=== PATIENT | female | born 1955 | race American Indian/Alaskan Native ===

== ENCOUNTER 2019-02-15 01:19 | Inpatient (IN) | payer MEDICARE ==
[2019-02-15] MEDS ORDERED: ASPIRIN PO ONE (01:27)
--- NOTE | 2019-02-15 01:58 | XRay Report ---
PROCEDURE: XR CHEST 1V AP TECHNIQUE: Chest radiograph single view. HISTORY: Chest Pain COMPARISONS: None . FINDINGS: Heart: Normal. Mediastinum/Vessels: Normal. Lungs/Pleural space: Normal. Bony thorax: No acute osseous abnormality. Life support devices: None. IMPRESSION: No acute cardiopulmonary abnormality. This document is electronically signed by Neo Dailey MD., February 15 2019 01:55:51 AM ET
[2019-02-15 02:13] LABS: Basophils % (Auto) 0.4 % (0.0-1.8); Eosinophils % (Auto) 0.8 % (0.0-4.3); Hemoglobin 12.7 gm/dl (10.1-14.3); Lymphocytes # (Auto) 1.3 K/mm3 (1.2-5.4); Lymphocytes % (Auto) 25.4 % (13.4-35.0); Mean Corpuscular HGB Conc 33 % (30-34); Mean Corpuscular Volume 91 fl (79-97); Monocytes # (Auto) 0.4 K/mm3 (0.0-0.8); Monocytes % (Auto) 7.6 % (0.0-7.3); Platelet Count 203 K/mm3 (140-440); Red Blood Count 4.18 M/mm3 (3.65-5.03)
[2019-02-15 02:33] LABS: BUN/Creatinine Ratio 11; Blood Urea Nitrogen 11 mg/dL (7-17); Calcium 9.8 mg/dL (8.4-10.2); Hemolysis Index 4
[2019-02-15] MEDS ORDERED: NITROSTAT SL ONE (02:59)
[2019-02-15] MEDS: NITROSTAT SL PRN ×2 (03:02→12:32)
[2019-02-15] MEDS ORDERED: MORPHINE IV ONE (03:29)
[2019-02-15] MEDS ORDERED: NACL 0.9% 500 ML 500 ML IV ONE (03:29)
--- NOTE | 2019-02-15 03:30 | Emergency Department Report ---
<CALVIN PERES - Last Filed: 02/15/19 05:38> ED Chest Pain HPI - General Chief Complaint: Chest Pain Stated Complaint: CP Time Seen by Provider: 02/15/19 03:22 Source: patient, EMS (ems notes not available at time of chart dictation), RN notes reviewed, old records reviewed Mode of arrival: Stretcher Limitations: No Limitations - History of Present Illness Initial Comments: Past medical history heart disease, coronary artery disease, stents 2, reports not taking aspirin or Plavix, history of breast cancer, chemotherapy, radiation This is a 63-year-old female. She reports that her cancer specialist and current wood gluer are with a local cancer treatment center. She cannot remember the name of her wood gluer. She believes that her oncologist is Dr. Graf She presents to the emergency room with complaint of nontraumatic central chest pain. The chest pain isn't really present for the past 4 hours prior to arrival. The chest pain is aching, does not have exacerbating factors that she is aware of, is associated with nausea, and decreases with rest and with nitroglycerin. It may moved to the back. She is not certain. Patient reports last cardiac stent placed in 2007. No recent cardiac risk stratification that she is aware. Makes a point of headache or neck pain, abdominal pain, leg pain. Nonspecific respiratory difficulty, no cough. MD Complaint: chest pain -: Gradual Onset: during rest Pain Location: substernal, left chest Pain Radiation: back Severity scale (0 -10): 3 Quality: aching Consistency: intermittent Improves With: nitroglycerin, medication-other Treatments Prior to Arrival: none Aspirin use within the Past 7 Days: (0) No - Related Data Allergies Allergy/AdvReac Type Severity Reaction Status Date / Time iodine AdvReac Anaphylaxis Verified 02/15/19 01:26 Heart Score - HEART Score History: Moderately suspicious EKG: Non-specific Age: 45-65 Risk factors: 1-2 risk factors Troponin: < normal limit HEART Score: 4 - Critical Actions Critical Actions: 0-3 pts:0.9-1.7%risk of adverse cardiac event.Candidate for discharge ED Review of Systems Constitutional: malaise. denies: fever Eyes: denies: vision change ENT: denies: epistaxis Respiratory: denies: cough Cardiovascular: chest pain Gastrointestinal: nausea. denies: vomiting Genitourinary: denies: dysuria Musculoskeletal: denies: back pain Neurological: weakness Psychiatric: anxiety ED Past Medical Hx - Past Medical History Previous Medical History?: Yes Hx Hypertension: Yes Hx of Cancer: Yes (Breast CA (Right)) - Surgical History Past Surgical History?: Yes Hx Coronary Stent: Yes (x2 placed 2007) ED Physical Exam - General Limitations: No Limitations General appearance: alert, anxious - Head Head exam: Present: atraumatic, normocephalic - Eye Eye exam: Present: normal appearance, EOMI - ENT ENT exam: Present: normal exam, normal orophraynx, mucous membranes moist, normal external ear exam - Neck Neck exam: Present: normal inspection, full ROM. Absent: tenderness, meningismus - Respiratory Respiratory exam: Present: normal lung sounds bilaterally, chest wall tenderness. Absent: respiratory distress - Cardiovascular Cardiovascular Exam: Present: regular rate, normal rhythm, normal heart sounds. Absent: bradycardia, tachycardia, irregular rhythm, systolic murmur, diastolic murmur, rubs, gallop - GI/Abdominal GI/Abdominal exam: Present: soft. Absent: distended, tenderness, guarding, rebound, rigid, pulsatile mass - Extremities Exam Extremities exam: Present: normal inspection, full ROM, other (2+ pulses noted in the bilateral upper, lower extremities. Compartments soft. No long bony te nderness. The pelvis is stable.). Absent: pedal edema, joint swelling, calf tenderness - Back Exam Back exam: Present: normal inspection, full ROM. Absent: tenderness, CVA tenderness (R), paraspinal tenderness, vertebral tenderness - Neurological Exam Neurological exam: Present: alert, other (Extraocular movements intact. Tongue midline. No facial droop. Facial sensation intact to light touch in the V1, V2, V3 distribution bilaterally. 5 and 5 strength in 4 extremities.. Sensation is intact to light touch in 4 extremities.). Absent: motor sensory deficit - Psychiatric Psychiatric exam: Present: normal affect, normal mood - Skin Skin exam: Present: warm, dry, intact, normal color. Absent: rash ED Course - Reevaluation(s) Reevaluation #1: 02/15/19 05:43 Differential diagnosis, including not limited to: GERD, gastritis, hiatal hernia, pneumonia, acute coronary syndrome, pulmonary embolus Assessment and plan: 63-year-old female, known history of coronary artery disease, reportedly noncompliant with antiplatelet therapy, also active breast cancer patient, with concerning chest pain. The patient is afebrile with reassuring vital signs. Hemodynamically has been stable. Her pain has been treated aggressively. She endorses tongue swelling when she is exposed to IV contrast dye. We will therefore obtain a nuclear medicine study, to risk stratify the patient for pulmonary embolus. Assuming no PE is suggested, plan is to admit the patient to the medical service for cardiac risk stratification. Discussed this with the patient, who verbalized understanding, and is amenable to this plan of care. [facility], Dr. Brodie Pedraza, to follow up on nuclear medicine study, and contact the inpatient hospitalist team to arrange admission. CLEMENTE score - Clemente Score Age > 65: (0) No Aspirin use within the Past 7 Days: (0) No 3 or more CAD Risk Factors: (0) No 2 or more Angina events in past 24 hrs: (1) Yes Known CAD with more than 50% Stenosis: (0) No Elevated Cardiac Markers: (0) No ST Deviation Greater than 0.5mm: (0) No CLEMENTE Score: 1 ED Medical Decision Making - Lab Data Result diagrams: 02/15/19 02:00 02/15/19 02:00 Vital Signs 02/15/19 02/15/19 02/15/19 01:27 01:32 03:02 Temperature 97.8 F Pulse Rate 69 67 67 Respiratory 15 Rate Blood Pressure 169/115 Blood Pressure 170/99 [Left] O2 Sat by Pulse 98 Oximetry 02/15/19 04:57 Temperature Pulse Rate 70 Respiratory 15 Rate Blood Pressure Blood Pressure 134/82 [Left] O2 Sat by Pulse 95 Oximetry Lab Results 02/15/19 02/15/19 02/15/19 Range/Units 02:00 02:00 03:38 WBC 5.2 (4.5-11.0) K/mm3 RBC 4.18 (3.65-5.03) M/mm3 Hgb 12.7 (10.1-14.3) gm/dl Hct 38.0 (30.3-42.9) % MCV 91 (79-97) fl MCH 30 (28-32) pg MCHC 33 (30-34) % RDW 15.0 (13.2-15.2) % Plt Count 203 (140-440) K/mm3 Lymph % (Auto) 25.4 (13.4-35.0) % [place] % (Auto) 7.6 H (0.0-7.3) % Eos % (Auto) 0.8 (0.0-4.3) % Baso % (Auto) 0.4 (0.0-1.8) % Lymph # 1.3 (1.2-5.4) K/mm3 [place] # 0.4 (0.0-0.8) K/mm3 Eos # 0.0 (0.0-0.4) K/mm3 Baso # 0.0 (0.0-0.1) K/mm3 Seg Neutrophils % 65.8 (40.0-70.0) % Seg Neutrophils # 3.4 (1.8-7.7) K/mm3 PT (12.2-14.9) Sec. INR (0.87-1.13) D-Dimer (0-234) ng/mlDDU Sodium 139 (137-145) mmol/L Potassium 3.4 L (3.6-5.0) mmol/L Chloride 100.0 (98-107) mmol/L Carbon Dioxide 24 (22-30) mmol/L Anion Gap 18 mmol/L BUN 11 (7-17) mg/dL Creatinine 1.0 (0.7-1.2) mg/dL Estimated GFR > 60 ml/min BUN/Creatinine Ratio 11 % Glucose 143 H (65-100) mg/dL Calcium 9.8 (8.4-10.2) mg/dL Magnesium (1.7-2.3) mg/dL Total Creatine Kinase (30-135) units/L Troponin T 0.018 0.024 (0.00-0.029) ng/mL 02/15/19 02/15/19 Range/Units 03:38 03:38 WBC (4.5-11.0) K/mm3 RBC (3.65-5.03) M/mm3 Hgb (10.1-14.3) gm/dl Hct (30.3-42.9) % MCV (79-97) fl MCH (28-32) pg MCHC (30-34) % RDW (13.2-15.2) % Plt Count (140-440) K/mm3 Lymph % (Auto) (13.4-35.0) % [place] % (Auto) (0.0-7.3) % Eos % (Auto) (0.0-4.3) % Baso % (Auto) (0.0-1.8) % Lymph # (1.2-5.4) K/mm3 [place] # (0.0-0.8) K/mm3 Eos # (0.0-0.4) K/mm3 Baso # (0.0-0.1) K/mm3 Seg Neutrophils % (40.0-70.0) % Seg Neutrophils # (1.8-7.7) K/mm3 PT 13.6 (12.2-14.9) Sec. INR 0.98 (0.87-1.13) D-Dimer 239.15 H (0-234) ng/mlDDU Sodium (137-145) mmol/L Potassium (3.6-5.0) mmol/L Chloride (98-107) mmol/L Carbon Dioxide (22-30) mmol/L Anion Gap mmol/L BUN (7-17) mg/dL Creatinine (0.7-1.2) mg/dL Estimated GFR ml/min BUN/Creatinine Ratio % Glucose (65-100) mg/dL Calcium (8.4-10.2) mg/dL Magnesium 1.80 (1.7-2.3) mg/dL Total Creatine Kinase 61 (30-135) units/L Troponin T (0.00-0.029) ng/mL - EKG Data -: EKG Interpreted by Ga EKG shows normal: sinus rhythm, axis Rate: normal - EKG Data When compared to previous EKG there are: no significant change 02/15/19 05:42 EKG shows a normal sinus, 69 bpm, normal axis, QTC prolonged, poor R progression, left ventricular hypertrophy, this is an abnormal EKG, this EKG is not consistent with ST elevation myocardial infarction. - Radiology Data Radiology results: pending, report reviewed, image reviewed X-ray of the chest is negative for acute disease. Nuclear medicine studies pending. ED Disposition Clinical Impression: Chest pain Disposition: OP ADMIT IP TO THIS HOSP Is pt being admited?: Yes Does the pt Need Aspirin: Yes Condition: Fair Instructions: Chest Pain (ED) Referrals: PRIMARY CARE, [Primary Care Provider] - 3-5 Days <SAKSHI PEDRAZA - Last Filed: 02/15/19 07:38> ED Review of Systems ROS: Stated complaint: CP Other details as noted in HPI ED Course Vital Signs 02/15/19 02/15/19 02/15/19 01:27 01:32 03:02 Temperature 97.8 F Pulse Rate 69 67 67 Respiratory 15 Rate Blood Pressure 169/115 Blood Pressure 170/99 [Left] O2 Sat by Pulse 98 Oximetry 02/15/19 02/15/19 02/15/19 04:57 05:52 05:53 Temperature Pulse Rate 70 77 Respiratory 15 18 18 Rate Blood Pressure Blood Pressure 134/82 128/66 [Left] O2 Sat by Pulse 95 93 93 Oximetry 02/15/19 07:02 Temperature Pulse Rate 71 Respiratory 17 Rate Blood Pressure Blood Pressure 157/85 [Left] O2 Sat by Pulse Oximetry ED Medical Decision Making - Lab Data Result diagrams: 02/15/19 02:00 02/15/19 02:00 - Radiology Data Radiology results: report reviewed (VQ scan), image reviewed (VQ scan) [place] [address] Nuclear Medicine Report Signed Patient: JOCELYNE RAVI MR#: [id number] : 1955 Acct:[id number] Age/Sex: 63 / F ADM Date: 02/15/19 Loc: ED Attending Dr: Ordering Physician: CALVIN PERES MD Date of Service: 02/15/19 Procedure(s): NM lung scan perf/vent Accession Number(s): [id number] cc: CALVIN PERES MD PROCEDURE: NM PULMONARY QUANTITATIVE DIFFERENTIAL PERFUSION AND VENTILATION IMAGING. TECHNIQUE: 5 mCi Tc-99m MAA was injected IV for quantitative differential pulmonary perfusion imaging in multiple projections. 12 mCi xenon-133 was inhaled for quantitative differential pulmona ry ventilation imaging in multiple projections. Injection site: RIGHT antecubital fossa. CPT 22626 REGULATORY GUIDELINES: The patient was released based upon guidelines established in [place] State Regulations for Protection Against Radiation, Chapter 1199-11-25-35, Release of Individuals Containing Radioactive Drugs or Implants. HISTORY: Chest pain COMPARISONS: None . FINDINGS: Perfusion: No defects . Ventilation: No defects . IMPRESSION: Normal Examination . There is no evidence of pulmonary embolism. This document is electronically signed by Haider Mauro MD., February 15 2019 07:32:16 AM ET Transcribed By: CO Dictated By: HAIDER MAURO MD Electronically Authenticated By: HAIDER MAURO MD Signed Date/Time: 02/15/19 0734 DD/ 2 TD/TT: 02/15/1912 Critical care attestation.: If time is entered above; I have spent that time in minutes in the direct care of this critically ill patient, excluding procedure time. ED Disposition Is pt being admited?: Yes Does the pt Need Aspirin: Yes Time of Disposition: 07:38 (hospitalist paged)
[2019-02-15 04:02] LABS: INR 0.98 (0.87-1.13)
[2019-02-15] MEDS ORDERED: K-DUR PO ONE ×2 (05:41→21:12)
[2019-02-15] MEDS ORDERED: PEPCID IV ONE (05:45)
--- NOTE | 2019-02-15 07:34 | Nuclear Medicine Report ---
PROCEDURE: NM PULMONARY QUANTITATIVE DIFFERENTIAL PERFUSION AND VENTILATION IMAGING. TECHNIQUE: 5 mCi Tc-99m MAA was injected IV for quantitative differential pulmonary perfusion imagin g in multiple projections. 12 mCi xenon-133 was inhaled for quantitative differential pulmonary venti lation imaging in multiple projections. Injection site: RIGHT antecubital fossa. CPT 72168 REGULATORY GUIDELINES: The patient was released based upon guidelines established in [facility] Regulat ions for Protection Against Radiation, Chapter 1199-11-25-35, Release of Individuals Containing Radio active Drugs or Implants. HISTORY: Chest pain COMPARISONS: None . FINDINGS: Perfusion: No defects . Ventilation: No defects . IMPRESSION: Normal Examination . There is no evidence of pulmonary embolism. This document is electronically signed by Haider Smith MD., February 15 2019 07:32:16 AM ET
[2019-02-15 07:55] LABS: Chol/HDL Ratio 2.58 %
[2019-02-15] MEDS ORDERED: ZOFRAN ONE (14:16)
[2019-02-15] MEDS ORDERED: ZOFRAN IV ONE (14:33)
--- NOTE | 2019-02-15 14:48 | History and Physical Report ---
History of Present Illness Chief complaint: My chest is hurting History of present illness: 63 YO Female with HTN, CAD S/P Stent Placement, BrCa S/P Chemo and Radiation Therapy presents to ED for evaluation. Pt states that she has experienced pain in her chest over the past 1 day with acutely worsening symptoms over the past 2-3 hours. Pt states that her pain is 3-6/10, Substernal, radiates to the left chest, aching and crushing in nature, not worsened with exertion, relieved with rest, associated with nausea and diaphoresis. Pt acknowledges decreased exercise tolerance. Pt seen and evaluated in ED and found to have symptoms consistent with NSTEMI as well as Diastolic CHF. Pt admitted to [facility]. Cardiology consulted in ED. Pt initiated on therapeutic lovenox. No prior admissions for review. No medication listed at time of admission for reconciliation. Past History Past Medical History: CAD, cancer, hypertension Past Surgical History: Other (Cardiac stent placement. ) Social history: single. denies: smoking, alcohol abuse, prescription drug abuse Family history: hypertension Medications and Allergies Allergies Allergy/AdvReac Type Severity Reaction Status Date / Time iodine AdvReac Anaphylaxis Verified 02/15/19 01:26 Home Medications Medication Instructions Recorded Confirmed Last Taken Type No Known Home Medications [No 02/15/19 02/15/19 Unknown History Reported Home Medications] Active Meds: Active Medications Nitroglycerin (Nitrostat) 0.4 mg SL .Q5MIN PRN PRN Reason: Chest Pain Last Admin: 02/15/19 12:32 Dose: 0.4 mg Documented by: Review of Systems Constitutional: no weight loss, no weight gain, no fever, no chills Ears, nose, mouth and throat: no ear pain, no ear discharge, no tinnitis, no decreased hearing, no nose pain Breasts: no change in shape, no swelling, no mass Cardiovascular: chest pain Gastrointestinal: no abdominal pain, no nausea, no vomiting, no diarrhea Genitourinary Female: no pelvic pain, no flank pain, no menorrhagia, no dysuria, no urinary frequency Rectal: no pain, no incontinence, no bleeding Musculoskeletal: no neck stiffness, no neck pain, no shooting arm pain, no arm numbness/tingling, no low back pain Integumentary: no rash, no pruritis, no redness, no sores, no wounds Neurological: no transient paralysis, no paralysis, no weakness, no parathesias, no numbness, no tingling, no seizures Psychiatric: no anxiety, no memory loss, no change in sleep habits, no sleep disturbances, no insomnia, no hypersomnia Endocrine: no cold intolerance, no heat intolerance, no polyphagia, no excessive thirst, no polydipsia, no polyuria Hematologic/Lymphatic: no easy bruising, no easy bleeding Allergic/Immunologic: no urticaria, no allergic rhinitis, no wheezing Exam - Constitutional Vitals: Temp Pulse Resp BP Pulse Ox 97.8 F 66 16 152/74 98 02/15/19 01:32 02/15/19 14:37 02/15/19 14:37 02/15/19 14:37 02/15/19 14:37 General appearance: Present: mild distress - EENT Eyes: Present: PERRL ENT: hearing intact, clear oral mucosa - Neck Neck: Present: supple, normal ROM - Respiratory Respiratory effort: normal Respiratory: bilateral: CTA - Cardiovascular Heart Sounds: Present: S1 & S2. Absent: rub, click - Extremities Extremities: pulses symmetrical, No edema Peripheral Pulses: within normal limits - Abdominal General gastrointestinal: Present: soft, non-tender, non-distended, normal bowel sounds Female genitourinary: Present: normal - Integumentary Integumentary: Present: clear, warm, dry - Musculoskeletal Musculoskeletal: gait normal, strength equal bilaterally - Psychiatric Psychiatric: appropriate mood/affect, intact judgment & insight - Neurologic Neurologic: CNII-XII intact, moves all extremities Results - Labs CBC & Chem 7: 02/15/19 02:00 02/15/19 02:00 Labs: Abnormal lab results 02/15/19 02/15/19 02/15/19 Range/Units 02:00 02:00 03:38 [place] % (Auto) 7.6 H (0.0-7.3) % D-Dimer 239.15 H (0-234) ng/mlDDU Potassium 3.4 L (3.6-5.0) mmol/L Glucose 143 H (65-100) mg/dL Troponin T (0.00-0.029) ng/mL 02/15/19 Range/Units 07:11 [place]ell % (Auto) (0.0-7.3) % D-Dimer (0-234) ng/mlDDU Potassium (3.6-5.0) mmol/L Glucose (65-100) mg/dL Troponin T 0.052 H D (0.00-0.029) ng/mL Assessment and Plan - Patient Problems (1) NSTEMI (non-ST elevated myocardial infarction) Current Visit: Yes Status: Acute Plan to address problem: Admit to IMCU, Serial Cardiac enzymes, Echo, stress test, Therapeutic anticoagulation, morphine, supplemental oxygen, nitro, aspirin, chest x ray. (2) HTN (hypertension) Current Visit: Yes Status: Acute Qualifiers: Hypertension type: essential hypertension Qualified Code(s): I10 - Essential (primary) hypertension Plan to address problem: Monitor BP q shift, continue current therapy. (3) Breast cancer Current Visit: Yes Status: Acute Qualifiers: Laterality: unspecified laterality Plan to address problem: Outpatient oncology F/U. Pt is S/P Chemo and Radiation therapy. (4) CAD (coronary artery disease) Current Visit: Yes Status: Acute Qualifiers: Associated angina: with stable angina Plan to address problem: Admit to IMCU, Chest pain protocol, lipid panel, statin therapy, risk factor reduction. (5) DVT prophylaxis Current Visit: Yes Status: Acute Plan to address problem: SCD to BLE while in bed, Therapeutic lovenox
[2019-02-15] MEDS ORDERED: SODIUM CHLORIDE FLUSH SYRINGE 10 ML IV PRN (14:50)
[2019-02-15] MEDS ORDERED: TYLENOL PO PRN (14:50)
[2019-02-15] MEDS ORDERED: PROVENTIL IH PRN (14:50)
[2019-02-15] MEDS ORDERED: BABY ASPIRIN PO STA (14:50)
[2019-02-15] MEDS ORDERED: LOVENOX SUB-Q SCH ×3 (14:55→22:00)
[2019-02-15] MEDS: MORPHINE IV PRN (17:57)
[2019-02-15] MEDS: ZOFRAN IV PRN (17:57)
[2019-02-15 18:10] LABS: Free T4 (Free Thyroxine) 1.02 ng/dL (0.76-1.46)
[2019-02-15] MEDS: SODIUM CHLORIDE FLUSH SYRINGE 10 ML IV SCH (22:08)
[2019-02-15] MEDS: PEPCID PO SCH (22:08)
[2019-02-16] MEDS ORDERED: APRESOLINE IV PRN (01:11)
[2019-02-16] MEDS: ZOFRAN IV PRN (02:00)
[2019-02-16] MEDS: SODIUM CHLORIDE FLUSH SYRINGE 10 ML IV PRN ×2 (02:06→05:22)
[2019-02-16] MEDS: MORPHINE IV PRN (05:18)
--- NOTE | 2019-02-16 09:06 | Consultation ---
History of Present Illness Consult date: 02/16/19 Consult reason: chest pain History of present illness: 63 year old female presenting with chest pain, abnormal troponin consistent with NSTEMI History of CAD s/p PCI in 2007 Patient states that she had a normal stress test 3 months ago Patient reports that she is not taking antiplatelet therapy at home for unclear reasons Patient has a history of breast cancer s/p surgery, chemo and radiation therapy Past History Past Medical History: CAD, cancer, hypertension Past Surgical History: Other (Cardiac stent placement. ) Social history: single. denies: smoking, alcohol abuse, prescription drug abuse Family history: hypertension Medications and Allergies Allergies Allergy/AdvReac Type Severity Reaction Status Date / Time iodine AdvReac Anaphylaxis Verified 02/15/19 01:26 Home Medications Medication Instructions Recorded Confirmed Last Taken Type No Known Home Medications [No 02/15/19 02/15/19 Unknown History Reported Home Medications] Active Meds: Active Medications Acetaminophen (Tylenol) 650 mg PO Q4H PRN PRN Reason: Pain MILD(1-3)/Fever >100.5/MESSER Albuterol (Proventil) 2.5 mg IH Q4HRT PRN PRN Reason: Shortness Of Breath Famotidine (Pepcid) 20 mg PO BID [facility] Last Admin: 02/15/19 22:08 Dose: 20 mg Documented by: Hydralazine HCl (Apresoline) 10 mg IV Q4HR PRN PRN Reason: SBP greater than 160 Last Admin: 02/16/19 01:53 Dose: 10 mg Documented by: Morphine Sulfate (Morphine) 2 mg IV Q4H PRN PRN Reason: Pain, Moderate (4-6) Last Admin: 02/16/19 05:18 Dose: 2 mg Documented by: Nitroglycerin (Nitrostat) 0.4 mg SL .Q5MIN PRN PRN Reason: Chest Pain Last Admin: 02/15/19 12:32 Dose: 0.4 mg Documented by: Ondansetron HCl (Zofran) 4 mg IV Q8H PRN PRN Reason: Nausea And Vomiting Last Admin: 02/16/19 02:00 Dose: 4 mg Documented by: Sodium Chloride (Sodium Chloride Flush Syringe 10 Ml) 10 ml IV BID [facility] Last Admin: 02/15/19 22:08 Dose: 10 ml Documented by: Sodium Chloride (Sodium Chloride Flush Syringe 10 Ml) 10 ml IV PRN PRN PRN Reason: LINE FLUSH Last Admin: 02/16/19 05:22 Dose: 10 ml Documented by: Review of Systems All systems: negative Physical Examination Vital Signs Pulse 69 02/15/19 01:27 General appearance: no acute distress HEENT: Positive: PERRL Neck: Positive: neck supple Cardiac: Positive: Reg Rate and Rhythm Lungs: Positive: Normal Exam Abdomen: Positive: Soft Extremities: Present: normal Results 02/15/19 02:00 02/15/19 02:00 - EKG Interpretation EKG: sinus rhythm EKG interpretations - Telemetry EKG Rhythm: Sinus Rhythm Assessment and Plan NSTEMI Negative VQ scan CAD s/p PCI in 2007 Breast cancer s/p surgery, chemo and radiation Rx Recommendations: Cancel stress test Proceed with LHC (consent in chart) Pretreat with solumedrol and benadryl (history of iodine allergy)
[2019-02-16] MEDS: LOPRESSOR PO SCH ×2 (09:29→21:40)
[2019-02-16] MEDS: PEPCID PO SCH ×2 (09:30→21:40)
[2019-02-16] MEDS: HALFPRIN EC PO SCH (09:30)
[2019-02-16] MEDS: SODIUM CHLORIDE FLUSH SYRINGE 10 ML IV SCH (09:31)
[2019-02-16] MEDS ORDERED: BENADRYL IV ONE (10:00)
[2019-02-16] MEDS ORDERED: SOLU-Medrol IV ONE (10:00)
[2019-02-16] MEDS ORDERED: NACL 0.9% 500 ML 500 ML IV SCH (10:00)
[2019-02-16] MEDS ORDERED: VERSED ONE (10:47)
[2019-02-16] MEDS ORDERED: HEPARIN/NS 5000 UNIT/500ML(CATH LAB) 1,000 ML IR ONE (10:47)
[2019-02-16] MEDS ORDERED: HEPARIN 10,000 UNITS/10 ML ONE (10:47)
[2019-02-16] MEDS ORDERED: NITROGLYCERIN SYRINGE 0 ML ONE (10:48)
[2019-02-16] MEDS ORDERED: XYLOCAINE 2% INFILTRATI ONE (10:48)
[2019-02-16] MEDS ORDERED: CALAN ONE (10:48)
[2019-02-16] MEDS ORDERED: SUBLIMAZE ONE (10:48)
[2019-02-16] MEDS ORDERED: NACL 0.9% 500 ML 500 ML ONE (10:49)
--- NOTE | 2019-02-16 13:30 | Cardiac Catherization Report ---
LEFT HEART CATHETERIZATION INDICATION FOR PROCEDURE: Non-ST elevation myocardial infarction. ORDERING PHYSICIAN: Jatin Montes MD PROCEDURES PERFORMED: 1. Selective left and right coronary angiography. 2. Left ventriculography. DESCRIPTION OF PROCEDURE: After obtaining the consent, the patient was draped using sterile technique, 2% lidocaine was injected into the right groin. A 5-[place] vascular sheath was inserted using micropuncture needle. A 5-[place] JL4 catheter was used to selectively engage the left coronary artery. A 5-[place] JR4 catheter was used to selectively engage the right coronary artery. A 5-[place] JR4 catheter was used to hand inject the left ventriculogram. No complications occurred during the procedure. Hemostasis was achieved at the end of the procedure using a 5-[place] Mynx closure device. ESTIMATED BLOOD LOSS: Minimal. SPECIMEN REMOVED: None. Total sedation administered was monitored, 1 mg of IV Versed and 25 mcg of IV fentanyl. Physician and patient [id number] sedation start time: 11:22 a.m. Physician and patient [id number] sedation stop time: 11:41 a.m. Total sedation time was 19 minutes. FINDINGS: HEMODYNAMICS: Aortic pressure 156/79, LV systolic pressure 153 mmHg, and LV end diastolic pressure 26 mmHg. CARDIAC STRUCTURES: The left ventricle is normal in size. The left ventricular ejection fraction is estimated at 45%-50%. There is basal anterior and basal inferior wall hypokinesis. CORONARY ANATOMY: 1. This is a left dominant circulation. 2. The left main is a short vessel. 3. The left anterior descending artery has evidence of a 30% ostial disease followed by scattered 30% lesions noted throughout the proximal segment of the left anterior descending artery. There is a patent stent in the mid LAD. There is evidence of an occluded stent at the ostium and proximal segment of the second diagonal artery. 4. The left circumflex artery is a large, dominant vessel with no evidence of significant obstructive coronary artery disease. 5. The right coronary artery is a small nondominant vessel that is severely diffusely diseased. IMPRESSION: 1. Patent mid LAD stent with an occluded bifurcation, second diagonal artery stent. Otherwise, nonobstructive coronary artery disease noted throughout this left dominant coronary circulation. The right coronary artery is a small nondominant severely diffusely diseased vessel. 2. The left ventricular ejection fraction estimated between 45% and 50% with basal anterior and basal inferior hypokinesis. RECOMMENDATIONS: The patient will be recommended for medical therapy. IV heparin will be continued for 48 hours and the patient will be started on dual antiplatelet therapy. JOB# [id number] RENZO/GEORGE
--- NOTE | 2019-02-16 16:43 | Progress Note ---
Assessment and Plan Assessment and plan: 63-year-old long history of hypertension, CAD status post stents in the past, breast cancer status post chemoradiation who presented with chest pain 1 day. Past medical history; hypertension, breast cancer, CAD VQ scan neg A/P NSTEMI: sp cath, patent LAD stent noted, occluded diag stent, HTN; optimize meds Breast Ca; cont outpatient fup Hypokalemia; repleted Tentative dc home tomorrow History Interval history: Review of systems Constitutional: No fevers, no malaise, no joint pains CVS: No chest pain, no orthopnea, no dyspnea on exertion, no pedal edema GI: No abdominal pain, no diarrhea, no vomiting, no constipation Respiratory: no wheezing, no coughing Hospitalist Physical - Physical exam Narrative exam: General.: Appears well, no distress, nontoxic HEENT: Moist mucous membranes, extraocular muscles intact, no lymphadenopathy Neck: supple Cardiac: S1-S2 heard Lungs: clear to auscultation bilaterally Abdomen: soft , nontender, nondistended, bowel sounds positive Extremities: no edema clubbing or cyanosis Skin: no rash or lesions Neurologic: no gross focal deficits Psych: calm, and cooperative - Constitutional Vitals: Temp Pulse Resp BP Pulse Ox 97.9 F 66 18 137/73 97 02/16/19 16:00 02/16/19 10:51 02/16/19 10:51 02/16/19 10:51 02/16/19 10:51 General appearance: Present: no acute distress Results - Labs CBC & Chem 7: 02/15/19 02:00 02/15/19 02:00 Labs: Laboratory Last Values WBC 5.2 K/mm3 (4.5-11.0) 02/15/19 02:00 RBC 4.18 M/mm3 (3.65-5.03) 02/15/19 02:00 Hgb 12.7 gm/dl (10.1-14.3) 02/15/19 02:00 Hct 38.0 % (30.3-42.9) 02/15/19 02:00 MCV 91 fl (79-97) 02/15/19 02:00 MCH 30 pg (28-32) 02/15/19 02:00 MCHC 33 % (30-34) 02/15/19 02:00 RDW 15.0 % (13.2-15.2) 02/15/19 02:00 Plt Count 203 K/mm3 (140-440) 02/15/19 02:00 Lymph % (Auto) 25.4 % (13.4-35.0) 02/15/19 02:00 [place] % (Auto) 7.6 % (0.0-7.3) H 02/15/19 02:00 Eos % (Auto) 0.8 % (0.0-4.3) 02/15/19 02:00 Baso % (Auto) 0.4 % (0.0-1.8) 02/15/19 02:00 Lymph # 1.3 K/mm3 (1.2-5.4) 02/15/19 02:00 [place] # 0.4 K/mm3 (0.0-0.8) 02/15/19 02:00 Eos # 0.0 K/mm3 (0.0-0.4) 02/15/19 02:00 Baso # 0.0 K/mm3 (0.0-0.1) 02/15/19 02:00 Seg Neutrophils % 65.8 % (40.0-70.0) 02/15/19 02:00 Seg Neutrophils # 3.4 K/mm3 (1.8-7.7) 02/15/19 02:00 PT 13.6 Sec. (12.2-14.9) 02/15/19 03:38 INR 0.98 (0.87-1.13) 02/15/19 03:38 D-Dimer 239.15 ng/mlDDU (0-234) H 02/15/19 03:38 Sodium 139 mmol/L (137-145) 02/15/19 02:00 Potassium 3.4 mmol/L (3.6-5.0) L 02/15/19 02:00 Chloride 100.0 mmol/L (98-107) 02/15/19 02:00 Carbon Dioxide 24 mmol/L (22-30) 02/15/19 02:00 Anion Gap 18 mmol/L 02/15/19 02:00 BUN 11 mg/dL (7-17) 02/15/19 02:00 Creatinine 1.0 mg/dL (0.7-1.2) 02/15/19 02:00 Estimated GFR > 60 ml/min 02/15/19 02:00 BUN/Creatinine Ratio 11 % 02/15/19 02:00 Glucose 143 mg/dL (65-100) H 02/15/19 02:00 Calcium 9.8 mg/dL (8.4-10.2) 02/15/19 02:00 Magnesium 1.80 mg/dL (1.7-2.3) 02/15/19 03:38 Total Creatine Kinase 61 units/L (30-135) 02/15/19 03:38 Troponin T 0.117 ng/mL (0.00-0.029) H* D 02/15/19 20:20 NT-Pro-B Natriuret Pep 1254 pg/mL (0-900) H 02/15/19 15:15 Triglycerides 56 mg/dL (2-149) 02/15/19 07:11 Cholesterol 150 mg/dL (50-199) 02/15/19 07:11 LDL Cholesterol Direct 84 mg/dL (50-130) 02/15/19 07:11 HDL Cholesterol 58 mg/dL (40-59) 02/15/19 07:11 Cholesterol/HDL Ratio 2.58 % 02/15/19 07:11 TSH 1.260 mlU/mL (0.270-4.200) 02/15/19 17:28 Free T4 1.02 ng/dL (0.76-1.46) 02/15/19 17:28 Active Medications - Current Medications Current Medications: Generic Name Dose Route Start Last Admin Trade Name Freq PRN Reason Stop Dose Admin Acetaminophen 650 mg 02/15/19 14:50 Tylenol PO Q4H PRN Pain MILD(1-3)/Fever >100.5/MESSER Albuterol 2.5 mg 02/15/19 14:50 Proventil IH Q4HRT PRN Shortness Of Breath Aspirin 81 mg 02/16/19 10:00 02/16/19 09:30 Halfprin Ec PO 81 mg QDAY [facility] Administration Atorvastatin Calcium 40 mg 02/16/19 22:00 Lipitor PO QHS ANDREY Clopidogrel Bisulfate 75 mg 02/16/19 14:00 Plavix PO QDAY ANDREY Famotidine 20 mg 02/15/19 22:00 02/16/19 09:30 Pepcid PO 20 mg BID ANDREY Administration Hydralazine HCl 10 mg 02/16/19 01:11 02/16/19 01:53 Apresoline IV 10 mg Q4HR PRN Administration SBP greater than 160 Sodium Chloride 500 mls @ 50 mls/hr 02/16/19 10:00 02/16/19 11:20 Nacl 0.9% 500 Ml IV 02/16/19 19:59 100 mls DIRECT ANDREY Administration Heparin Sodium/Sodium Chloride 25,000 unit in 500 mls @ 20 mls/hr 02/16/19 16:00 Heparin/ 0.45% Nacl-25,000 Unit/500 Ml IV TITRATE ANDREY Protocol 1,000 UNITS/HR Isosorbide Mononitrate 30 mg 02/16/19 14:00 Imdur PO QDAY [facility] Metoprolol Tartrate 25 mg 02/16/19 10:00 02/16/19 09:29 Lopressor PO 25 mg BID ANDREY Administration Morphine Sulfate 2 mg 02/15/19 14:50 02/16/19 05:18 Morphine IV 2 mg Q4H PRN Administration Pain, Moderate (4-6) Nitroglycerin 0.4 mg 02/15/19 03:00 02/15/19 12:32 Nitrostat SL 0.4 mg .Q5MIN PRN Administration Chest Pain Ondansetron HCl 4 mg 02/15/19 14:50 02/16/19 02:00 Zofran IV 4 mg Q8H PRN Administration Nausea And Vomiting Sodium Chloride 10 ml 02/15/19 22:00 02/16/19 09:31 Sodium Chloride Flush Syringe 10 Ml IV 10 ml BID ANDREY Administration Sodium Chloride 10 ml 02/15/19 14:50 02/16/19 05:22 Sodium Chloride Flush Syringe 10 Ml IV 10 ml PRN PRN Administration LINE FLUSH
[2019-02-16] MEDS: PLAVIX PO SCH (20:03)
[2019-02-16] MEDS: IMDUR PO SCH (20:03)
[2019-02-16] MEDS: HEPARIN/ 0.45% NACL-25,000 UNIT/500 ML 25,000 UNIT/500 ML BAG IV SCH (20:20)
[2019-02-17] MEDS: MORPHINE IV PRN ×3 (00:50→21:33)
[2019-02-17 05:23] LABS: BUN/Creatinine Ratio 17; Blood Urea Nitrogen 17 mg/dL (7-17); Hemolysis Index 8
[2019-02-17] MEDS: HALFPRIN EC PO SCH (09:49)
[2019-02-17] MEDS: LOPRESSOR PO SCH ×2 (09:50→21:29)
[2019-02-17] MEDS: SODIUM CHLORIDE FLUSH SYRINGE 10 ML IV SCH ×2 (09:50→21:34)
[2019-02-17] MEDS: PEPCID PO SCH ×2 (09:50→21:29)
[2019-02-17] MEDS: PLAVIX PO SCH (09:50)
[2019-02-17] MEDS: IMDUR PO SCH (09:50)
--- NOTE | 2019-02-17 11:35 | Progress Note ---
Assessment and Plan NSTEMI [facility] reports: Patent LAD stent; occluded diag stent, non-obstructive cx disease, non-dominant RCA, LVEF 45-50% Hx of CAD Hx of Breast Ca s/p radiation and chemotherapy Recommend medical therapy Continue IV heparin for a total of 48 hours. Continue medical therapy with aspirin, plavix, lipitor, beta david and nitrates for coronary artery disease. Subjective Date of service: 02/17/19 Interval history: Patient is resting in bed comfortably. She denies chest pain and shortness of breath. Objective Vital Signs Temp Pulse Pulse Resp BP BP Pulse Ox 02/17/19 10:00 63 70 12 124/67 91 02/17/19 09:50 70 136/66 02/17/19 09:00 67 8 L 144/78 98 02/17/19 08:00 98.4 F 56 L 14 133/71 97 02/17/19 07:00 58 L 15 144/74 96 02/17/19 06:00 57 L 17 127/79 97 02/17/19 05:31 61 12 102/65 98 02/17/19 05:00 56 L 15 141/81 97 02/17/19 04:30 53 L 11 L 131/76 96 02/17/19 04:00 98.4 F 58 L 13 122/70 95 02/17/19 03:30 62 20 142/100 96 02/17/19 03:00 68 21 131/70 95 02/17/19 02:30 64 15 131/71 94 02/17/19 02:00 56 L 16 124/66 97 02/17/19 01:30 57 L 13 122/70 95 02/17/19 01:01 60 18 144/75 94 02/17/19 00:30 56 L 15 126/77 98 02/17/19 00:00 60 13 130/95 98 02/16/19 23:37 99.7 F H 02/16/19 23:30 58 L 16 132/95 97 02/16/19 23:00 60 14 124/69 96 02/16/19 22:30 62 15 130/63 97 02/16/19 22:00 98.2 F 62 16 131/74 96 02/16/19 21:40 69 121/77 02/16/19 21:30 70 9 L 120/82 96 02/16/19 21:01 77 21 128/90 98 02/16/19 20:30 63 16 136/78 96 02/16/19 20:03 73 142/74 02/16/19 20:00 68 12 142/74 99 02/16/19 19:57 98 02/16/19 19:45 71 12 136/78 97 02/16/19 19:31 66 12 98 02/16/19 19:01 97 02/16/19 18:31 73 11 L 96 02/16/19 18:01 78 16 97 02/16/19 18:00 92 H 27 H 100 02/16/19 17:31 70 15 97 02/16/19 17:01 81 18 97 02/16/19 16:31 74 16 97 02/16/19 16:01 73 14 98 02/16/19 16:00 97.9 F 02/16/19 15:31 73 12 121/77 98 02/16/19 15:01 67 15 140/87 97 02/16/19 14:31 81 19 140/87 97 02/16/19 14:00 66 92 H 18 147/81 95 02/16/19 13:30 69 20 141/85 93 02/16/19 13:00 65 17 134/83 93 02/16/19 12:30 72 13 136/88 95 02/16/19 12:18 67 14 126/80 94 02/16/19 12:00 99.0 F - Physical Examination General: No Apparent Distress HEENT: Positive: PERRL Neck: Positive: trachea midline Cardiac: Positive: Reg Rate and Rhythm Lungs: Positive: Decreased Breath Sounds Neuro: Positive: Grossly Intact Abdomen: Positive: Soft Incision: Cardiac Cath Site (right groin) Extremities: Present: normal - Labs and Meds Coagulation 02/16/19 Range/Units 16:51 APTT 30.6 (24.2-36.6) Sec. Comprehensive Metabolic Panel 02/17/19 Range/Units 04:49 Sodium 139 (137-145) mmol/L Potassium 4.4 D (3.6-5.0) mmol/L Chloride 102.5 (98-107) mmol/L Carbon Dioxide 24 (22-30) mmol/L BUN 17 (7-17) mg/dL Creatinine 1.0 (0.7-1.2) mg/dL Glucose 112 H (65-100) mg/dL Calcium 10.0 (8.4-10.2) mg/dL
--- NOTE | 2019-02-17 11:46 | Discharge Summary ---
Providers - Providers Date of Admission: 02/15/19 14:50 Attending physician: GIOVANNA JONES MD 02/15/19 Consult to Cardiac Rehabilitation [CONS] Routine Reason For Exam: Phase I 02/15/19 14:50 Consult to Cardiology [CONS] Routine Consulting Provider: GUANACO MOONEY Reason For Exam: nstemi Consult to Physician [CONS] Routine Comment: Consulting Provider: GUANACO MOONEY Physician Instructions: Reason For Exam: nstemi Primary care physician: ENROLLMENT MANAGEMENT COORDINATOR Hospitalization Condition: Fair Hospital course: 63 year old woman with history of hypertension, CAD status post stents, breast cancer status post chemo radiation. She presented to the hospital complaining of chest pain.she was found to have a non-stemi, received medical optimization, anticoagulation. She went on to have an angiogram which showed a patent LAD stent and occluded diagonal stent. Medical management was recommended, her medications were optimized by cardiology. Her potassium was replaced. Diagnosis non stemi hypertension breast cancer hypokalemia Disposition: DC- TO HOME OR SELFCARE Time spent for discharge: 33 mins Core Measure Documentation - Palliative Care Palliative Care/ Comfort Measures: Not Applicable - Core Measures Any of the following diagnoses?: acute NM - Acute NM Discharge Requirements Aspirin at discharge: Yes ADRIAN/ARB for LVSD if EF <40%: Not Applicable Beta david at discharge: Yes Statin for LDL = or >100 mg/dl on DC: Yes Exam - Constitutional Vitals: Temp Pulse Resp BP Pulse Ox 98.4 F 70 12 124/67 91 02/17/19 08:00 02/17/19 10:00 02/17/19 10:00 02/17/19 10:00 02/17/19 10:00 General appearance: Present: no acute distress, well-nourished - EENT Eyes: Present: PERRL ENT: hearing intact, clear oral mucosa - Neck Neck: Present: supple, normal ROM - Respiratory Respiratory effort: normal Respiratory: bilateral: CTA - Cardiovascular Heart Sounds: Present: S1 & S2. Absent: rub, click - Extremities Extremities: pulses symmetrical, No edema Peripheral Pulses: within normal limits - Abdominal General gastrointestinal: Present: soft, non-tender, non-distended, normal bowel sounds Female genitourinary: Present: normal - Integumentary Integumentary: Present: clear, warm, dry - Musculoskeletal Musculoskeletal: gait normal, strength equal bilaterally - Psychiatric Psychiatric: appropriate mood/affect, intact judgment & insight - Neurologic Neurologic: CNII-XII intact, moves all extremities Plan Follow up with: PRIMARY CARE, [Primary Care Provider] - 3-5 Days Prescriptions: AtorvaSTATin [Lipitor] 40 mg PO QHS #30 tablet Aspirin EC [Aspirin Enteric Coated TAB] 81 mg PO QDAY #30 tablet ISOSORBIDE MONOnitrate [Imdur ER] 30 mg PO QDAY #30 tablet Metoprolol [Lopressor TAB] 25 mg PO BID #60 tablet Nitroglycerin [Nitrostat] 0.4 mg SL .Q5MIN PRN #30 tablet PRN Reason: Chest Pain Clopidogrel [Plavix] 75 mg PO QDAY #30 tablet
[2019-02-17] MEDS: ZOFRAN IV PRN (17:01)
[2019-02-17] MEDS: HEPARIN/ 0.45% NACL-25,000 UNIT/500 ML 25,000 UNIT/500 ML BAG IV SCH (22:35)
[2019-02-18 04:42] LABS: Hematocrit 38.5 % (30.3-42.9)
[2019-02-18] MEDS: MORPHINE IV PRN (05:14)
[2019-02-18] MEDS: SODIUM CHLORIDE FLUSH SYRINGE 10 ML IV SCH (09:23)
[2019-02-18] MEDS: HALFPRIN EC PO SCH (09:23)
[2019-02-18] MEDS: IMDUR PO SCH (09:23)
[2019-02-18] MEDS: LOPRESSOR PO SCH (09:24)
[2019-02-18] MEDS: PLAVIX PO SCH (09:24)
[2019-02-18] MEDS: PEPCID PO SCH (09:24)
--- NOTE | 2019-02-18 10:15 | Progress Note ---
Assessment and Plan NSTEMI [facility] reports: Patent LAD stent; occluded diag stent, non-obstructive cx disease, non-dominant RCA, LVEF 45-50% Hx of CAD Hx of Breast Ca s/p radiation and chemotherapy Recommendations: Continue medical therapy with aspirin, plavix, lipitor and metoprolol for coronary artery disease. Stable cardiac major for discharge home today. 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 Subjective Date of service: 02/18/19 Interval history: Patient is resting in bed comfortably. She denies chest pain and shortness of breath. Objective Vital Signs Temp Pulse Pulse Pulse Resp BP Pulse Ox 02/18/19 09:24 64 122/68 02/18/19 09:23 64 122/68 02/18/19 08:00 56 L 61 13 139/86 99 02/18/19 07:00 51 L 17 129/60 96 02/18/19 06:00 55 L 18 133/67 100 02/18/19 05:00 96.6 F L 55 L 11 L 133/65 98 02/18/19 04:00 47 L 55 L 11 L 128/72 99 02/18/19 03:00 51 L 11 L 118/64 98 02/18/19 02:00 53 L 18 120/71 95 02/18/19 01:00 54 L 16 121/70 98 02/18/19 00:00 98.7 F 51 L 68 52 L 13 121/70 95 02/17/19 23:00 49 L 18 117/72 97 02/17/19 22:52 58 L 12 112/69 96 02/17/19 22:00 55 L 16 136/71 98 02/17/19 21:29 56 L 128/77 02/17/19 21:00 57 L 12 128/77 100 02/17/19 20:00 98.5 F 62 17 123/72 97 02/17/19 19:00 62 17 119/63 96 02/17/19 18:00 63 10 L 123/66 98 02/17/19 17:01 58 L 13 149/84 100 02/17/19 16:00 98.8 F 60 14 134/88 91 02/17/19 15:00 59 L 11 L 127/74 98 02/17/19 14:01 60 14 128/79 98 02/17/19 14:00 68 98 02/17/19 13:01 64 13 119/67 99 02/17/19 12:00 98.5 F 61 10 L 143/85 100 02/17/19 11:01 66 12 149/71 97 - Physical Examination General: No Apparent Distress HEENT: Positive: PERRL Neck: Positive: trachea midline Cardiac: Positive: Reg Rate and Rhythm Lungs: Positive: Decreased Breath Sounds Neuro: Positive: Grossly Intact Extremities: Absent: edema - Labs and Meds CBC 02/18/19 Range/Units 04:14 Hgb 13.0 (10.1-14.3) gm/dl Hct 38.5 (30.3-42.9) % Plt Count 156 (140-440) K/mm3
[2019-02-18 10:50] VITALS: BP 112/71
--- NOTE | 2019-02-18 11:57 | Progress Note ---
Assessment and Plan Assessment and plan: was found to have a non-stemi, received medical optimization, anticoagulation. She went on to have an angiogram which showed a patent LAD stent and occluded diagonal stent. Medical management was recommended, her medications were optimized by cardiology. Her potassium was replaced. -needs to complete 48 hours of heparin ggt prior to dc home Diagnosis non stemi hypertension breast cancer hypokalemia History Interval history: Review of systems Constitutional: No fevers, no malaise, no joint pains CVS: No chest pain, no orthopnea, no dyspnea on exertion, no pedal edema GI: No abdominal pain, no diarrhea, no vomiting, no constipation Respiratory: no wheezing, no coughing Hospitalist Physical - Physical exam Narrative exam: General.: Appears well, no distress, nontoxic HEENT: Moist mucous membranes, extraocular muscles intact, no lymphadenopathy Neck: supple Cardiac: S1-S2 heard Lungs: clear to auscultation bilaterally Abdomen: soft , nontender, nondistended, bowel sounds positive Extremities: no edema clubbing or cyanosis Skin: no rash or lesions Neurologic: no gross focal deficits Psych: calm, and cooperative - Constitutional Vitals: Temp Pulse Resp BP Pulse Ox 96.6 F L 60 14 112/71 99 02/18/19 05:00 02/18/19 10:00 02/18/19 10:00 02/18/19 10:00 02/18/19 10:00 General appearance: Present: no acute distress, well-nourished Results - Labs CBC & Chem 7: 02/18/19 04:14 02/17/19 04:49 Labs: Laboratory Last Values WBC 5.2 K/mm3 (4.5-11.0) 02/15/19 02:00 RBC 4.18 M/mm3 (3.65-5.03) 02/15/19 02:00 Hgb 13.0 gm/dl (10.1-14.3) 02/18/19 04:14 Hct 38.5 % (30.3-42.9) 02/18/19 04:14 MCV 91 fl (79-97) 02/15/19 02:00 MCH 30 pg (28-32) 02/15/19 02:00 MCHC 33 % (30-34) 02/15/19 02:00 RDW 15.0 % (13.2-15.2) 02/15/19 02:00 Plt Count 156 K/mm3 (140-440) 02/18/19 04:14 Lymph % (Auto) 25.4 % (13.4-35.0) 02/15/19 02:00 [place] % (Auto) 7.6 % (0.0-7.3) H 02/15/19 02:00 Eos % (Auto) 0.8 % (0.0-4.3) 02/15/19 02:00 Baso % (Auto) 0.4 % (0.0-1.8) 02/15/19 02:00 Lymph # 1.3 K/mm3 (1.2-5.4) 02/15/19 02:00 [place] # 0.4 K/mm3 (0.0-0.8) 02/15/19 02:00 Eos # 0.0 K/mm3 (0.0-0.4) 02/15/19 02:00 Baso # 0.0 K/mm3 (0.0-0.1) 02/15/19 02:00 Seg Neutrophils % 65.8 % (40.0-70.0) 02/15/19 02:00 Seg Neutrophils # 3.4 K/mm3 (1.8-7.7) 02/15/19 02:00 PT 13.6 Sec. (12.2-14.9) 02/15/19 03:38 INR 0.98 (0.87-1.13) 02/15/19 03:38 APTT 30.6 Sec. (24.2-36.6) 02/16/19 16:51 D-Dimer 239.15 ng/mlDDU (0-234) H 02/15/19 03:38 Heparin Anti-Xa Level 0.62 U.I./ml (0.3-0.7) 02/17/19 11:59 Sodium 139 mmol/L (137-145) 02/17/19 04:49 Potassium 4.4 mmol/L (3.6-5.0) D 02/17/19 04:49 Chloride 102.5 mmol/L (98-107) 02/17/19 04:49 Carbon Dioxide 24 mmol/L (22-30) 02/17/19 04:49 Anion Gap 17 mmol/L 02/17/19 04:49 BUN 17 mg/dL (7-17) 02/17/19 04:49 Creatinine 1.0 mg/dL (0.7-1.2) 02/17/19 04:49 Estimated GFR > 60 ml/min 02/17/19 04:49 BUN/Creatinine Ratio 17 % 02/17/19 04:49 Glucose 112 mg/dL (65-100) H 02/17/19 04:49 POC Glucose 90 (70-105) 02/18/19 05:06 Calcium 10.0 mg/dL (8.4-10.2) 02/17/19 04:49 Magnesium 1.80 mg/dL (1.7-2.3) 02/15/19 03:38 Total Creatine Kinase 61 units/L (30-135) 02/15/19 03:38 Troponin T 0.117 ng/mL (0.00-0.029) H* D 02/15/19 20:20 NT-Pro-B Natriuret Pep 1254 pg/mL (0-900) H 02/15/19 15:15 Triglycerides 56 mg/dL (2-149) 02/15/19 07:11 Cholesterol 150 mg/dL (50-199) 02/15/19 07:11 LDL Cholesterol Direct 84 mg/dL (50-130) 02/15/19 07:11 HDL Cholesterol 58 mg/dL (40-59) 02/15/19 07:11 Cholesterol/HDL Ratio 2.58 % 02/15/19 07:11 TSH 1.260 mlU/mL (0.270-4.200) 02/15/19 17:28 Free T4 1.02 ng/dL (0.76-1.46) 02/15/19 17:28 Active Medications - Current Medications Current Medications: Generic Name Dose Route Start Last Admin Trade Name Freq PRN Reason Stop Dose Admin Acetaminophen 650 mg 02/15/19 14:50 Tylenol PO Q4H PRN Pain MILD(1-3)/Fever >100.5/MESSER Albuterol 2.5 mg 02/15/19 14:50 Proventil IH Q4HRT PRN Shortness Of Breath Aspirin 81 mg 02/16/19 10:00 02/18/19 09:23 Halfprin Ec PO 81 mg QDAY ANDREY Administration Atorvastatin Calcium 40 mg 02/16/19 22:00 02/17/19 21:29 Lipitor PO 40 mg QHS ANDREY Administration Clopidogrel Bisulfate 75 mg 02/16/19 14:00 02/18/19 09:24 Plavix PO 75 mg QDAY ANDREY Administration Famotidine 20 mg 02/15/19 22:00 02/18/19 09:24 Pepcid PO 20 mg BID ANDREY Administration Hydralazine HCl 10 mg 02/16/19 01:11 02/16/19 01:53 Apresoline IV 10 mg Q4HR PRN Administration SBP greater than 160 Heparin Sodium/Sodium Chloride 25,000 unit in 500 mls @ 20 mls/hr 02/16/19 16:00 02/17/19 22:35 Heparin/ 0.45% Nacl-25,000 Unit/500 Ml IV 900 units/hr TITRATE ANDREY 18 mls/hr Administration Protocol 1,000 UNITS/HR Isosorbide Mononitrate 30 mg 02/16/19 14:00 02/18/19 09:23 Imdur PO 30 mg QDAY [facility] Administration Metoprolol Tartrate 25 mg 02/16/19 10:00 02/18/19 09:24 Lopressor PO 25 mg BID ANDREY Administration Morphine Sulfate 2 mg 02/15/19 14:50 02/18/19 05:14 Morphine IV 2 mg Q4H PRN Administration Pain, Moderate (4-6) Nitroglycerin 0.4 mg 02/15/19 03:00 02/15/19 12:32 Nitrostat SL 0.4 mg .Q5MIN PRN Administration Chest Pain Ondansetron HCl 4 mg 02/15/19 14:50 02/17/19 17:01 Zofran IV 4 mg Q8H PRN Administration Nausea And Vomiting Sodium Chloride 10 ml 02/15/19 22:00 02/18/19 09:23 Sodium Chloride Flush Syringe 10 Ml IV 10 ml BID ANDREY Administration Sodium Chloride 10 ml 02/15/19 14:50 02/16/19 05:22 Sodium Chloride Flush Syringe 10 Ml IV 10 ml PRN PRN Administration LINE FLUSH
== END 2019-02-18 12:15 | disposition home or self-care (01) | DRG 282 ==
LOC: ED 01:19 → IMCU 14:50
PROVIDERS: ADMIT Internal Medicine; ATTEND Internal Medicine
PROC: 4A023N7 Measurement of Cardiac Sampling and Pressure, Left Heart, Percutaneous Approach (ICD-10-PCS; principal; 2019-02-16)
PROC: B2111ZZ Fluoroscopy of Multiple Coronary Arteries using Low Osmolar Contrast (ICD-10-PCS; 2019-02-16)
PROC: B2151ZZ Fluoroscopy of Left Heart using Low Osmolar Contrast (ICD-10-PCS; 2019-02-16)
DX: T82.897A Other specified complication of cardiac prosthetic devices, implants and grafts, initial encounter (principal); I21.4 Non-ST elevation (NSTEMI) myocardial infarction; Y83.8 Other surgical procedures as the cause of abnormal reaction of the patient, or of later complication, without mention of misadventure at the time of the procedure; E87.6 Hypokalemia; C50.919 Malignant neoplasm of unspecified site of unspecified female breast; I25.10 Atherosclerotic heart disease of native coronary artery without angina pectoris; I25.118 Atherosclerotic heart disease of native coronary artery with other forms of angina pectoris; Z82.49 Family history of ischemic heart disease and other diseases of the circulatory system; Z95.5 Presence of coronary angioplasty implant and graft; Z91.041 Radiographic dye allergy status; Z92.3 Personal history of irradiation; Y92.098 Other place in other non-institutional residence as the place of occurrence of the external cause; Z92.21 Personal history of antineoplastic chemotherapy
CPT/HCPCS: 36415; 71045; 78582; 80048; 80061; 82550; 82962; 83735; 83880; 84439; 84443; 84484; 85014; 85018; 85025; 85049; 85379; 85520; 85610; 85730; 93005; 93010; 93306; 93458; G0378; A9270-GY; A9540; A9558; C1760; J0360; J1200; J1644; J1650; J2250; J2270; J2405; J2930; J3010; J7040; Q9967